=== PATIENT | female | born 1975 | race Caucasian/White ===

== ENCOUNTER 2017-01-05 18:28 | Emergency (ER) | payer OTHER | END 2017-01-05 20:40 | disposition home or self-care (01) | LOC: ER1 18:28 | DX: S63.612A Unspecified sprain of right middle finger, initial encounter (principal); I10 Essential (primary) hypertension; G40.909 Epilepsy, unspecified, not intractable, without status epilepticus; F17.210 Nicotine dependence, cigarettes, uncomplicated; Z88.0 Allergy status to penicillin; Z88.2 Allergy status to sulfonamides; Z88.6 Allergy status to analgesic agent; Z79.899 Other long term (current) drug therapy; W22.8XXA Striking against or struck by other objects, initial encounter; Y93.89 Activity, other specified; Y92.009 Unspecified place in unspecified non-institutional (private) residence as the place of occurrence of the external cause | CPT/HCPCS: 73130; 99283 ==

== ENCOUNTER 2017-01-11 16:14 | Emergency (ER) | payer OTHER ==
[2017-01-11 20:58] LABS: HEMOGLOBIN 13.1 gm/dl (12.3-15.3); RED BLOOD COUNT 4.32 M/UL (4.00-5.10); WHITE BLOOD COUNT 9.5 K/UL (4.5-11.0)
[2017-01-11 21:12] LABS: BUN/CREATININE RATIO 12 (0-10)
== END 2017-01-11 22:26 | disposition home or self-care (01) ==
LOC: ER1 16:14
PROVIDERS: Emergency Medicine
DX: G40.309 Generalized idiopathic epilepsy and epileptic syndromes, not intractable, without status epilepticus (principal); F17.210 Nicotine dependence, cigarettes, uncomplicated; Z88.0 Allergy status to penicillin; Z88.1 Allergy status to other antibiotic agents; Z88.2 Allergy status to sulfonamides; Z88.5 Allergy status to narcotic agent; Z88.6 Allergy status to analgesic agent
CPT/HCPCS: 36415; 80048; 80185; 85025; 93005; 96361; 96365; 96375; 99284; G0480; J1885; J2765; J7030; Q2009

== ENCOUNTER 2017-04-10 21:15 | Emergency (ER) | payer OTHER | END 2017-04-11 00:07 | disposition home or self-care (01) | LOC: ER1 21:15 | DX: S60.221A Contusion of right hand, initial encounter (principal); I10 Essential (primary) hypertension; F17.210 Nicotine dependence, cigarettes, uncomplicated; W19.XXXA Unspecified fall, initial encounter; Y92.009 Unspecified place in unspecified non-institutional (private) residence as the place of occurrence of the external cause | CPT/HCPCS: 73130; 99283 ==